=== PATIENT | male | born 1970 | race Caucasian/White ===

== ENCOUNTER 2022-08-04 21:03 | Emergency (ER) | payer SELFPAY ==
[~2022-08-04] VITALS: Ht 177.8 cm; Wt 83.0 kg
[2022-08-04 21:07] VITALS: BP 130/89
[2022-08-04] MEDS ORDERED: IBUPROFEN 800MG TABLET PO ONE (22:30)
[2022-08-04] MEDS ORDERED: IBUP-2030 PO (23:27)
== END 2022-08-05 00:14 | disposition home or self-care (01) ==
LOC: ER 22:14
DX: M79.605 Pain in left leg (principal); I10 Essential (primary) hypertension
CPT/HCPCS: 73552; 99283